=== PATIENT | female | born 1955 | race Two or more races ===

== ENCOUNTER 2023-03-20 07:35 | Day surgery (SDC) | payer MEDICARE, OTHER ==
[2023-03-16 14:20] LABS: BASOPHILS # (AUTO) 0.1 X10'3 (0-0.2); BASOPHILS % (AUTO) 0.8 % (0-1); EOSINOPHILS # (AUTO) 0.4 X10'3 (0-0.9); EOSINOPHILS % (AUTO) 4.3 % (0-6); LYMPHOCYTES # (AUTO) 2.8 X10'3 (1.1-4.8); LYMPHOCYTES % (AUTO) 32.5 % (21-51); MEAN CORPUSCULAR HEMOGLOBIN 30.3 PG (27.0-31.0); MEAN CORPUSCULAR HGB CONC 33.7 g/dL (33.0-36.5); MEAN CORPUSCULAR VOLUME 89.8 FL (78-98); MEAN PLATELET VOLUME 8.9 FL (7.4-10.4); MONOCYTES # (AUTO) 0.7 X10'3 (0-0.9); MONOCYTES % (AUTO) 8.2 % (2-12); NEUTROPHILS # (AUTO) 4.6 X10'3 (1.8-7.7); NEUTROPHILS % (AUTO) 54.2 % (42-75); PRE OP HEMATOCRIT 39.8 % (35.0-45.0); PRE OP HEMOGLOBIN 13.4 g/dL (12.0-16.0); PRE OP PLATELET COUNT 242 X10'3 (140-440); RED BLOOD COUNT 4.43 X10'6 (4.20-5.60); RED CELL DISTRIBUTION WIDTH 13.3 % (11.5-14.5)
[2023-03-16 14:37] LABS: ALBUMIN 4.1 G/DL (3.4-5.0); ALBUMIN/GLOBULIN RATIO 1.2 (1.1-1.5); ALKALINE PHOSPHATASE 73 IU/L (46-116); BLOOD UREA NITROGEN 20 MG/DL (7-18); BUN/CREATININE RATIO 31.7 (10.0-20.0); CALCIUM 9.2 MG/DL (8.5-10.1); CHLORIDE 106 MMOL/L (99-107); CREATININE 0.63 MG/DL (0.40-0.90); PRE OP ALT 39 U/L (30-65); PRE OP ANION GAP 8 (8-16); PRE OP AST 20 U/L (10-37); PRE OP BILIRUB, TOTAL 0.4 MG/DL (0.0-1.0); PRE OP GLUCOSE 100 MG/DL (70-104); PRE OP POTASSIUM 3.8 MMOL/L (3.4-5.1); PRE OP SODIUM 143 MMOL/L (135-145); TOTAL CARBON DIOXIDE 29.2 MMOL/L (24-32); TOTAL PROTEIN 7.6 G/DL (6.4-8.2); eGFR > 90 ML/MIN
[~2023-03-20] VITALS: Ht 149.9 cm; Wt 58.2 kg
[2023-03-20] VITALS (15 sets, daily range): BP systolic 113–131; BP diastolic 60–72
[~2023-03-20 07:35] MED LIST: ALEN70TA60 PO; ATOR20TA PO; BETA1TAB19 PO; CHOL200074 PO; FERR236T3 PO; FOLI-91; KRIL1CAP21 PO; MAGN64TA8 PO; MECO10005 PO; OMEG-5 PO; cefazolin 2gm/D5W 100mL 100 ML IV ONE; famotidine 20mg tablet PO ONE; ringers solution, lacted 1,000 ML IV SCH
[2023-03-20] MEDS ORDERED: acetaminophen 1,000mg/100ml IV 100 ML IV PRN (10:40)
[2023-03-20] MEDS ORDERED: hydrALAZINE 20mg/ml inj. IV PRN (10:40)
[2023-03-20] MEDS ORDERED: proCHLORperazine 10 MG/2 ml inj IV PRN (10:40)
[2023-03-20] MEDS ORDERED: ondansetron/PF 4mg/2ml inj IV PRN (10:40)
[2023-03-20] MEDS ORDERED: labetalol 20mg/4ml (5mg/ml) syringe IV PRN (10:40)
[2023-03-20] MEDS ORDERED: meperidine/PF 25mg/ml syringe IV PRN ×2 (10:40)
[2023-03-20] MEDS ORDERED: morphine 2 MG/ML inj. syringe IV PRN (10:40)
[2023-03-20] MEDS ORDERED: morphine 4 MG/ML inj SYRINge IV PRN (10:40)
[2023-03-20] MEDS ORDERED: ringers solution, lacted 1,000 ML IV SCH (10:40)
[2023-03-20] MEDS ORDERED: BUPIVAcaine/PF 2.5 mg/ml (0.25%) 30ml vial ONE (10:42)
[2023-03-20] MEDS ORDERED: LIDOcaine 1% 30ml preserv. free vial ONE (10:42)
[2023-03-20] MEDS ORDERED: midazolam 1 mg/ML 2ml injection ONE (11:06)
[2023-03-20] MEDS ORDERED: fentaNYL /PF 50mcg/ml 5ml ampule ONE (11:06)
[2023-03-20] MEDS ORDERED: dexamethasone sod phosphate 4mg/ml inj. ONE ×2 (11:18)
[2023-03-20] MEDS ORDERED: rocuronium 10mg/ml inj IV ONE (11:19)
[2023-03-20] MEDS ORDERED: propofol inj 20 ML IV ONE (11:19)
[2023-03-20] MEDS ORDERED: LIDOcaine 2% (20mg/ml) 5ml vial ONE (11:19)
[2023-03-20] MEDS ORDERED: ondansetron/PF 4mg/2ml inj ONE (11:19)
[2023-03-20] MEDS ORDERED: neostigmine methylsulfate 1 MG/ML 10ml vial ONE (12:16)
[2023-03-20] MEDS ORDERED: glycopyrrolate 0.2mg/ml inj ONE (12:16)
--- NOTE | 2023-03-20 12:30 | NUR ---
Received from OR via [facility], accompanied by Anesthesiologist, DR. BAIRD- report given. PATIENT WAKING UP, DENIES PAIN, V/S WNL, CSM INTACT, 20G PIV TO R ARM PATENT, LAP SITES TO ABDOMEN X3 WITH BANDAIDS CDI.
[2023-03-20] MEDS ORDERED: HYDROcodone/acetaminophen 5mg/325mg tablet PO PRN (13:00)
[2023-03-20] MEDS: meperidine/PF 25mg/ml syringe IV PRN ×2 (13:20→14:46)
--- NOTE | 2023-03-20 15:00 | NUR ---
PT DOING WELL, UP AND DRESSED WAITING FOR RIDE-DID HAVE SOME INCREASE IN PAIN WITH MOVEMENT, GIVEN IV PAIN MEDS WITH GOOD RESULTS, VSS, LAP SITES CDI, PIV-D/CD, D/C INSTRUCTIONS GIVEN TO PT-ALL QUESTIONS ANSWERED, TAKEN WITH ALL BELONGINGS TO VEHICLE FOR TRANSPORT HOME.
== END 2023-03-20 15:00 | disposition home or self-care (01) ==
LOC: PAS 07:35
PROVIDERS: ATTEND Surgery
DX: K40.90 Unilateral inguinal hernia, without obstruction or gangrene, not specified as recurrent (principal); E78.5 Hyperlipidemia, unspecified; M85.80 Other specified disorders of bone density and structure, unspecified site; J45.909 Unspecified asthma, uncomplicated; Z88.2 Allergy status to sulfonamides; Z91.09 Other allergy status, other than to drugs and biological substances; Z79.899 Other long term (current) drug therapy; Z98.890 Other specified postprocedural states; Z83.3 Family history of diabetes mellitus; Z83.2 Family history of diseases of the blood and blood-forming organs and certain disorders involving the immune mechanism; Z80.1 Family history of malignant neoplasm of trachea, bronchus and lung
CPT/HCPCS: 36415; 49650; 80053; 82948; 85025; 93005; C1781; J0131; J0690; J1100; J2175; J2250; J2270; J2405; J2704; J2710; J3010; J3490; J7030; J7120; Z7506; Z7508; Z7512; A4215; A4618